=== PATIENT | female | born 1950 | race Caucasian/White ===

== ENCOUNTER 2020-08-29 19:46 | Emergency (ER) | payer MEDICARE, SELFPAY ==
[2020-08-29 19:47] VITALS: BP 143/83; PULSE 67; RESP 16; TEMP 36.6; O2SAT 100; BMI 28.0
--- NOTE | 2020-08-29 20:08 | EDS_ITS ---
HPI History of Present Illness Chief Complaint: Upper Extremity Injury Informant: patient Narrative Narrative: Patient is a 69-year-old female with no significant past medical history who presents to the emergency department for right shoulder injury after fall. She states she was playing 4 square with her grandkids and she lost her balance. She fell directly onto the right shoulder. She denies hitting her head or losing consciousness. No neck pain, back pain. No chest pain or shortness of breath. No abdominal pain. She did get some nausea due to the pain. She describes as severe. She does not take anything for it. She is on any blood thinning medications. She is unable to raise her right arm. No loss of sensation going down the arm. PFSH PFSH Home Medications hydrocodone-acetaminophen 1 tab PO Q6H PRN PRN 4 Days #12 tablet 08/29/20 [Rx Last Taken Unknown] ondansetron 4 mg PO Q8H PRN PRN #10 tab 08/29/20 [Rx Last Taken Unknown] Allergy/AdvReac Type Severity Reaction Status Date / Time No Known Allergies Allergy Verified 08/29/20 19:49 Surgical History (Updated 08/29/20 @ 20:21 by Francine Florez) H/O: hysterectomy Hx of cholecystectomy S/P hip replacement Social History Smoking Status: Former smoker ROS ROS ED Constitutional Constitutional ED: Denies chills or fever(s) Eyes Eyes: Denies change in vision ENT ENT ED: Denies epistaxis or rhinorrhea Cardiovascular Cardiovascular: Denies chest pain or palpitations Respiratory/Chest Respiratory/Chest: Denies cough, dyspnea or dyspnea on exertion Gastrointestinal Gastrointestinal: Denies abdominal pain or vomiting Musculoskeletal Musculoskeletal: Reports other Details: Right shoulder pain ; Denies back pain or neck pain Integumentary Denies rash Neurologic Neurologic: Denies dizziness, headache(s) or weakness EXAM Physical Exam Const Vital Signs: 08/29/20 19:47 Temperature 97.8 F Temperature Source Oral Pulse Rate 67 Respiratory Rate 16 Blood Pressure 143/83 H Blood Pressure Mean 103 Pulse Ox 100 Oxygen Delivery Method Room Air Positive well nourished and well developed General Appearance ED: well developed HEENT Reports normocephalic and head/scalp atraumatic Eyes PERRL and EOMs intact bilaterally Neck supple General: Negative for tenderness Chest Wall inspection of chest normal Resp normal respiratory effort and clear to auscultation bilaterally Auscultation: Negative for rales, rhonchi or wheezes Cardio regular rate, regular rhythm and no murmurs GI non-tender Palpation: soft Extremity Extremity Narrative: No pain over palpation to right collarbone. Tenderness to entire shoulder with light palpation. No pain going down the humerus, elbow, forearm or wrist/hand. 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 2+ radial pulse. Neurovascular intact. Neuro CN's II-XII intact bilaterally and no sensory deficits noted Sensorium / Orientation: alert Motor Exam: strength 5/5 throughout Psych mental status grossly normal Skin no rashes or lesions noted MDM MDM MDM Narrative Medical decision making narrative: Patient presents to the emergency department for right shoulder pain/injury after fall. She denies any other pain or injury. She is neurovascular intact. Vital signs within normal limits. Will check x- ray of the right shoulder and treat symptomatically with a dose of [place]. X-ray showed a distal clavicle fracture. There is no skin tenting. She is neurovascular intact. She is placed in a sling. She was going to be given a orthopedic surgery referral but she states she is from out of town and does have an orthopedic doctor in her hometown she is going to follow-up with tomorrow. Return precautions are reviewed with her. She otherwise is discharged home in stable condition. All questions were answered. Radiography Diagnostic Testing: Shoulder x-ray interpreted by myself. There is a distal clavicle fracture. No obvious rib fracture, humerus fracture or pneumothorax present. Agree with radiologist interpretation. Discharge Plan Triage Chief Complaint: Upper Extremity Injury ED Provider: Kirt Hernández Dx/Rx/DC Orders Clinical Impression: Closed fracture of distal clavicle Instructions: ED Fracture, Clavicle, ED Sling Prescriptions: New hydrocodone-acetaminophen 5-325 mg tablet 1 tab PO Q6H PRN PRN (Reason: Pain) 4 Days Qty: 12 RF: 0 ondansetron 4 mg tablet,disintegrating 4 mg PO Q8H PRN PRN (Reason: Nausea) Qty: 10 RF: 0 Referrals: ALLYSSA CHAVEZ [Other] Activity Restrictions/Additional Instructions: Please follow-up with your orthopedic surgeon in 2 days. Disposition Disposition: Home, self care
--- NOTE | 2020-08-29 20:10 | RAD_ITS ---
STUDY: X-RAY - RIGHT SHOULDER REASON FOR EXAM: Female, 69 years old. Fall, injury TECHNIQUE: 3 view(s) of the shoulder. COMPARISON: None. FINDINGS: Normal glenohumeral articulation. Acute, comminuted, displaced, multi fragmented fracture of the distal clavicle with soft tissue swelling. There is anatomic alignment between the distal clavicle and acromion. Normal humeral head and visualized proximal humerus. Normal visualized pulmonary apex. RAD/Shoulder min 2 Views IMPRESSION: Acute, comminuted, multi fragmented fracture of the distal clavicle with soft tissue swelling Electronically Signed: Joo Thapa MD at 20:51 EDT , Service support ,
[2020-08-29] MEDS: HYDROcodone Bitartrate/Apap 5/325 Tablet PO ×2 (20:18→21:13)
[2020-08-29] MEDS: Ondansetron ODT 4 MG Tablet PO ×2 (20:18→21:13)
[2020-08-29 21:23] VITALS: RESP 18; O2SAT 97
== END 2020-08-29 21:24 | disposition home or self-care (01) ==
PROVIDERS: Emergency Provider Emergency Medicine
DX: S42.031A Displaced fracture of lateral end of right clavicle, initial encounter for closed fracture (principal); W19.XXXA Unspecified fall, initial encounter; Y93.89 Activity, other specified; Y92.9 Unspecified place or not applicable; Y99.9 Unspecified external cause status; Z87.891 Personal history of nicotine dependence
CPT/HCPCS: 73030; 99284